=== PATIENT | male | born 1965 | race African-American/Black ===

== ENCOUNTER 2021-04-24 15:01 | Emergency (ER) | payer OTHER ==
[~2021-04-24] VITALS: Ht 182.9 cm; Wt 96.6 kg
[2021-04-24] MEDS ORDERED: APAP W/CODEINE1 TA2 PO (16:50)
[2021-04-24] MEDS ORDERED: PREDNISONE 20 M20 MG PO (16:50)
[2021-04-24 17:00] VITALS: BP 136/82
== END 2021-04-24 17:10 | disposition home or self-care (01) ==
LOC: ER 15:01
PROVIDERS: Emergency Medicine
DX: J06.9 Acute upper respiratory infection, unspecified (principal); Z20.822 Contact with and (suspected) exposure to COVID-19; F17.200 Nicotine dependence, unspecified, uncomplicated